=== PATIENT | female | born 1990 | race African-American/Black ===

== ENCOUNTER 2024-09-09 00:43 | Inpatient (IN) ==
[2024-09-09] MEDS: SODIUM CHLORIDE 0.9% 1,000 ML IV STA (01:03)
[2024-09-09] MEDS: ONDANSETRON INJ 2 MG/ML 2 ML VIAL IV STA (01:04)
[2024-09-09] MEDS: KETOROLAC TROMETHAMINE 15 MG/ML VIAL IV STA (01:05)
[2024-09-09] MEDS: DICYCLOMINE HCL 10 MG/ML 2 ML AMP/VIAL IM ONE (01:06)
--- NOTE | 2024-09-09 01:20 | Emergency Department Note ---
History of Present Illness General Chief complaint: Abdominal Pain Stated complaint: ABD PAIN Time Seen by Provider: 09/09/24 00:48 History of Present Illness Maximum Pain Intensity: 10 This 33-year-old female who just moved to the area presents ER with her partner complaining of lower abdominal pain for the past 2 weeks steadily getting worse. No prior abdominal surgeries. She states he is healthy with no active medical problems. Menstrual cycle was 2 weeks ago. Patient denies chest pain, dyspnea, fevers, vomiting, flank pain, urinary symptoms. IUD was placed 7 years ago in [place]. Allergies Allergy/AdvReac Type Severity Reaction Status Date / Time No Known Allergies Allergy Unverified 09/09/24 05:08 Past Med/Surg History Problem List (Updated 09/09/24 @ 06:05 by Daniela Epps PA-C) Vaginal discharge Encounter for IUD removal IUD infection IUD (intrauterine device) in place Abdominal pain (Acute) Inflammation of small intestine Peritonitis (acute) generalized (Acute) History of primary section Hemoperitoneum (nontraumatic) (Acute) Anemia (Acute) Ruptured cyst of left ovary (Acute) Social History Smoking Status: Former smoker Preferred Language: Israeli Feels Safe at Home: Yes Review of Systems A total of 10 systems reviewed and were otherwise negative Physical Exam Vital Signs Vital Signs - 24 hr 09/09/24 00:44 09/09/24 03:39 09/09/24 03:40 Temperature 37.2 C Temperature Source Oral Pulse Rate 100 H 87 90 Respiratory Rate 20 20 Respiratory Effort / Characteristics Non-Labored Respiratory Depth Normal Respiratory Pattern Regular Blood Pressure 122/70 125/76 Blood Pressure Mean 87 92 Pulse Oximetry 99 98 Oxygen Delivery Method Room Air Room Air Sepsis Recent Fever Within 48 Hours No Sepsis New/Unexplained Change in Mental Status N/A Sepsis Action Taken by Nursing No Action Required 09/09/24 04:00 09/09/24 04:03 09/09/24 04:39 Temperature Temperature Source Pulse Rate 90 91 H 93 H Respiratory Rate 20 19 24 Respiratory Effort / Characteristics Respiratory Depth Respiratory Pattern Blood Pressure 99/76 L Blood Pressure Mean 83 Pulse Oximetry 99 100 99 Oxygen Delivery Method Room Air Room Air Room Air Sepsis Recent Fever Within 48 Hours Sepsis New/Unexplained Change in Mental Status Sepsis Action Taken by Nursing 09/09/24 05:07 09/09/24 05:45 Temperature Temperature Source Pulse Rate 97 H Respiratory Rate 22 Respiratory Effort / Characteristics Respiratory Depth Respiratory Pattern Blood Pressure 130/74 Blood Pressure Mean 93 Pulse Oximetry 99 97 Oxygen Delivery Method Room Air Room Air Sepsis Recent Fever Within 48 Hours Sepsis New/Unexplained Change in Mental Status Sepsis Action Taken by Nursing VITALS: Vitals are noted on the nurse's note and reviewed by myself. Vital signs stable. GENERAL: Pleasant female, in no acute distress, nondiaphoretic, well-developed well-nourished. SKIN: Capillary reflex less than 2 seconds. HEENT: Normocephalic. PERRLA. EOMI. Nares patent. Mucous membranes moist. Neck is supple without nuchal rigidity. HEART: Regular rate and rhythm LUNGS: Clear to auscultation bilaterally without wheezes, rales or rhonchi. No retractions or accessory muscle use. ABDOMEN: Positive bowel sounds x 4. Normal tympanic percussion. Soft, tender to palpation lower abdomen, without masses or organomegaly. Streeter sign negative. No guarding or rebound tenderness. no CVA tenderness MUSCULOSKELETAL: No gross musculoskeletal defects. NEURO: Patient was alert and oriented to person place and time. No focal neurological deficits. Course Administered Medications Fentanyl Citrate (Fentanyl Citrate Pf 100 Mcg/2 Ml Vial) 100 mcg IV Q15M PRN PRN Reason: Pain Stop: 09/23/24 03:46 Last Admin: 09/09/24 05:56 Dose: 100 mcg Documented By: Admin: 09/09/24 04:11 Dose: 100 mcg Documented By: NJ Discontinued Medications Dicyclomine HCl (Dicyclomine Hcl 10 Mg/Ml 2 Ml Amp/Vial) 20 mg IM NOW ONE Stop: 09/09/24 00:56 Last Admin: 09/09/24 01:06 Dose: 20 mg Documented By: DOMINICK Doxycycline Hyclate (Doxycycline Hyclate 100 Mg Cap) 100 mg PO NOW STA Stop: 09/09/24 05:47 Last Admin: 09/09/24 05:56 Dose: 100 mg Documented By: NJ Sodium Chloride (Nss) 1,000 mls @ 999 mls/hr IV .Q1H1M STA Stop: 09/09/24 01:55 Last Infusion: 09/09/24 02:00 Dose: Infused Documented By: Admin: 09/09/24 01:03 Dose: 999 mls/hr Documented By: DOMINICK Acetaminophen (Ofirmev) 1,000 mg in 100 mls @ 400 mls/hr IV NOW STA Stop: 09/09/24 02:18 Last Infusion: 09/09/24 02:33 Dose: Infused Documented By: Admin: 09/09/24 02:08 Dose: 400 mls/hr Documented By: DOMINICK Famotidine (Pepcid 20mg Iv Push) 20 mg in 5 mls @ 2.5 mls/min IV NOW STA Stop: 09/09/24 03:48 Last Admin: 09/09/24 04:09 Dose: 2.5 mls/min Documented By: NJ Pantoprazole Sodium (Protonix) 40 mg in 10 mls @ 5 mls/min IV NOW ONE Stop: 09/09/24 03:48 Last Admin: 09/09/24 04:07 Dose: 5 mls/min Documented By: NJ Sodium Chloride (Nss) 1,000 mls @ 999 mls/hr IV .Q1H1M ONE Stop: 09/09/24 04:47 Last Infusion: 09/09/24 05:08 Dose: Infused Documented By: Admin: 09/09/24 04:07 Dose: 999 mls/hr Documented By: NJ Ioversol (Optiray 320 100ml) 94 ml IV ONCE ONE Stop: 09/09/24 01:54 Last Admin: 09/09/24 01:53 Dose: 94 ml Documented By: MARY Ketorolac Tromethamine (Ketorolac Tromethamine 15 Mg/Ml Vial) 10 mg IV NOW STA Stop: 09/09/24 00:56 Last Admin: 09/09/24 01:05 Dose: 10 mg Documented By: DOMINICK Miscellaneous Information (Patient's Allergy Info Needs Entered) 1 each N/A NOW STA Stop: 09/09/24 00:45 Last Admin: 09/09/24 05:23 Dose: 1 each Documented By: NJ Morphine Sulfate (Morphine Sulfate 4 Mg/Ml 1 Ml Carp\Vial) 4 mg IV NOW STA Stop: 09/09/24 02:52 Last Admin: 09/09/24 02:59 Dose: 4 mg Documented By: DOMINICK Morphine Sulfate (Morphine Sulfate 4 Mg/Ml 1 Ml Carp\Vial) Confirm Administered Dose 4 mg .ROUTE .STK-MED ONE Stop: 09/09/24 05:12 Last Admin: 09/09/24 05:21 Dose: Not Given Documented By: NJ Morphine Sulfate (Morphine Sulfate 4 Mg/Ml 1 Ml Carp\Vial) 4 mg IV NOW STA Stop: 09/09/24 05:21 Last Admin: 09/09/24 05:11 Dose: 4 mg Documented By: NJ Ondansetron HCl (Ondansetron Inj 2 Mg/Ml 2 Ml Vial) 4 mg IV NOW STA Stop: 09/09/24 00:56 Last Admin: 09/09/24 01:04 Dose: 4 mg Documented By: DOMINICK Critical Care Time Critical Care Time: Yes Total Critical Care Time: 35 I have personally spent 35 minutes of critical care time in the direct management of this patient. This includes bedside care, interpretation of diagnostic studies, and testing, discussion with consultants, patient, and family members, and other required patient management activities. This 35 minutes is in excess of all separately billable procedures. Medical Decision Making Medical Records Attestation: I reviewed the patient's medical records. Home Medications Current Medication List: was personally reviewed by me Laboratory Data Attestation: I reviewed the patient's lab results. 09/09/24 03:53 09/09/24 01:01 Lab Results 09/09/24 09/09/24 09/09/24 Range/Units 01:01 03:53 05:01 WBC 17.27 H (4.8-10.8) K/ul RBC 4.46 (4.20-5.40) M/uL Hgb 9.4 L 9.2 L (12.0-16.0) g/dl Hct 31.3 L 30.8 L (37.0-47.0) % MCV 70.2 L (80.0-100.0) fL MCH 21.1 L (25.0-34.0) pg MCHC 30.0 L (32.0-36.0) g/dL RDW Std Deviation 44.8 (36.4-46.3) fL RDW Coeff of Tito 17.8 H (11.5-14.5) % Plt Count 873 H (130-400) K/uL MPV 8.6 L (9.4-12.4) fL Immature Gran % (Auto) 0.9 % Neut % (Auto) 66.5 % Lymph % (Auto) 23.5 % [place]val % (Auto) 7.9 % Eos % (Auto) 0.9 % Baso % (Auto) 0.3 % Neut # (Auto) 11.49 H (1.40-6.50) K/uL Lymph # (Auto) 4.05 H (1.20-3.40) K/uL Duval # (Auto) 1.37 H (0.11-0.59) K/uL Eos # (Auto) 0.16 (0.00-0.50) K/uL Baso # (Auto) 0.05 (0.00-0.20) K/uL Immature Gran # (Auto) 0.15 (0.01-0.20) K/uL Sodium 136 (136-145) mmol/L Potassium 3.4 L (3.5-5.1) mmol/L Chloride 104 (98-107) mmol/L Carbon Dioxide 20 L (21-32) mmol/L Anion Gap 12 H (3-11) BUN 12 (6-23) mg/dl Creatinine 0.72 (0.6-1.2) mg/dl Est Cr Clr Drug Dosing 126.4 ml/min eGFR 114.57 BUN/Creatinine Ratio 16.7 (10-20) Glucose 123 H (70-99(Fasting)) mg/dl Calcium 9.6 (8.6-10.3) mg/dl Total Bilirubin 0.3 (0.2-1.0) mg/dl AST 13 (13-39) U/L ALT 12 (7-52) U/L Alkaline Phosphatase 67 (34-104) U/L Total Protein 8.8 H (6.0-8.3) gm/dl Albumin 4.2 (3.4-5.0) gm/dl Globulin 4.6 H (2.5-4.0) gm/dl Albumin/Globulin Ratio 0.9 (0.9-2) Lipase 26 (11-82) U/L HCG, Qual Negative (Negative) Urine Color Yellow Urine Appearance Cloudy A (Clear) Urine pH 6.0 (4.5-7.5) Ur Specific [place] > 1.045 H (1.000-1.030) Urine Protein 1+ H (Negative) Urine Glucose (UA) Negative (Negative) Urine Ketones 1+ H (Negative) Urine Blood Trace H (Negative) Urine Nitrite Negative (Negative) Urine Bilirubin Negative (Negative) Urine Urobilinogen Negative (Negative) Ur Leukocyte Esterase Negative (Negative) Urine WBC (Auto) 21-50 H (0-5) /hpf Urine RBC (Auto) 11-20 H (0-2) /hpf U Hyaline Cast (Auto) 0-2 (0-2) /lpf U Epithel Cells (Auto) 0-2 (0-2) /hpf Urine Bacteria (Auto) None Seen (None Seen) Blood Type O Positive Antibody Screen NEGATIVE Imaging Data Attestation: I personally reviewed and interpreted this imaging study as follows: Radiologist's Impression: Abdomen/Pelvis CT 09/09/24 00:55 EXAM: CT abd pelvis IV con only CLINICAL HISTORY: lower abd pain 94 cc opti 320 TECHNIQUE: Contiguous axial images were obtained from the level of the diaphragm to the pubic symphysis with intravenous contrast. Coronal and sagittal reconstructions were likewise performed and indicated to increase the sensitivity for detecting clinically relevant pathology. If IV contrast material had not been administered, the likelihood of detecting abnormalities relevant to the patient's condition would have been substantially decreased. CT scan was performed according to ALARA (as low as reasonable achievable). COMPARISON: None. FINDINGS: Minimal bilateral pleural effusion with passive subsegmental collapse of both lower lobes are seen. The liver is normal in size and attenuation. No focal liver lesions are seen. There is no intra or extrahepatic biliary ductal dilatation. Hepatic vasculature is patent. The gallbladder is present. The spleen, pancreas, and adrenal glands are unremarkable. The kidneys are normal in size and attenuation. There is no hydronephrosis or perinephric fat stranding. No renal calculi or renal masses are identified. The ureters are normal in caliber and no ureteral calculi are seen. The bladder is normal in contour. No focal or diffuse bowel wall thickening or evidence of bowel obstruction is identified. The appendix is visualized in the right lower quadrant and appears within normal limits. Abdominal and pelvic vasculature is patent. No aggressive appearing osseous lesions are identified. Approximately 57 x 35 mm size peripherally enhancing centrally hypodense cystic lesion is noted involving left adnexa abuts the adjacent left pelvic bowel loops. IUCD appear low lying. Rest of the pelvic viscera are unremarkable. Diffuse enhancing wall thickening is noted involving small bowel loop ( jejunal and ileal loop) - suggestive of enteritis. Mild pelvic ascites with enhancing thickening is noted involving peritoneum lining - suggestive of peritonitis. IMPRESSION: 1. Minimal bilateral pleural effusion with passive subsegmental collapse of both lower lobes are seen. 2. A large peripherally enhancing centrally hypodense cystic lesion is noted involving left adnexa abuts the adjacent left pelvic bowel loops.- possibility of complex ovarian cystic lesion appears more likely than infective collection. 3. Diffuse enhancing wall thickening is noted involving small bowel loop ( jejunal and ileal loop) - suggestive of enteritis. 4. Mild pelvic ascites with enhancing thickening is noted involving peritoneum lining - suggestive of peritonitis. Electronically signed by Jr Lazo 09-09-2024 04:25 AM Pelvis Ultrasound 09/09/24 02:04 EXAM: US pelvic complete CLINICAL HISTORY: Severe pain, IUD. TECHNIQUE: Ultrasound examination of the pelvis was performed in real-time and duplex using trans-abdominal and trans-vaginal approaches. The vascular flow was evaluated using color flow and with a spectral pattern of the flow waveform. COMPARISON: CT scan of the abdomen and pelvis done on the same day 09/09/2024 01:49:52CST. FINDINGS: Uterus: Uterine size and morphology: 8.1 cm in length, 4.0 cm in width, and 3.4 cm in thickness. The uterus appears mildly retroverted with homogeneous myometrium. The intrauterine contraceptive device is seen within the lower part of the endometrial cavity. Its left limb is pointing towards the left side however its right limb is pointing anteriorly and appears to be perforating the anterior uterine wall. No evidence of uterine masses, fibroids, or endometrial thickening. Endometrial stripe thickness: 4.9 mm. Ovaries: Right ovary size: 2.46 x 2.17 cm. Left ovary: The left ovary is not separately visualized. Adnexa: A large, heterogeneous, complex mass solid/cystic mass is seen in the left adnexa. It measures 5.27 x 4.54 cm. Bladder: Urinary bladder: is adequately filled. Additional Findings: A large amount of free fluid is seen in the pelvic cavity, along with a large number of low-level, free-floating internal echoes. IMPRESSION: 1. Keeping in view the radiological findings of a complex mass in the left adnexa and complex ascitic fluid, the possibility of a tubo-ovarian mass/ruptured ectopic /inflamed thick-walled bowel loops cannot be ruled out. Further evaluation by contrast-enhanced MRI is advised. 2. Questionable /doubtful perforation of the anterior uterine wall by the right limb of the intrauterine contraceptive device. 3. Correlate clinically and with lab investigations. Electronically signed by Shay Garcia 09-09-2024 05:05 AM MDM Narrative Prior records/ancillary studies reviewed. Triage Nursing notes reviewed. Additional history obtained from family. The patient's history was concerning for abdominal pain. Differential diagnosis: Etiologies such as appendicitis, ovarian problem, problem, IUD problem, diverticulitis, PUD, biliary pathology, UTI, pancreatitis, obstruction, mesenteric ischemia, aortic pathology, infections, inflammatory bowel disease, renal colic, as well as others were entertained. Physical examination findings: As above. ER treatment provided: An order was placed for continuous cardiac monitoring. The monitor shows a rate of 60-100 with a sinus rhythm per my Independent interpretation. Zofran, Bentyl and Toradol were ordered Morphine, fentanyl, IV fluids and second IV line was placed Patient was consented to blood and type and screen was sent On reassessment the patient felt better. Diagnostics interpreted by me: The labs Independently Interpreted by myself revealed anemia patient states she has heavy menstrual cycles Negative hCG Imaging studies: There were significant delays in the CAT scan and ultrasound reads tonight I independently reviewed the CAT scan and ultrasound and I was concerned there is a hemorrhagic cyst on the left ovary that was bleeding. I contacted OB immediately repeated the H&H and consented the patient to blood if warranted. Consultation: A consultation was placed with the OB, Dr. Whitfield. The case was discussed and diagnostics were reviewed. The patient was evaluated in the ER for further treatment. She will admit the patient and she did remove the IUD. Exam and history seem consistent with ruptured hemorrhagic cyst. Patient was evaluated by OB. OB will admit the patient. She did remove the IUD. Patient was admitted to the [facility]. Repeat H&H was similar. Type and screen was sent. Patient is agreeable to treatment plan of admission. By the evaluation outlined above emergent etiologies such as appendicitis, diverticulitis, PUD, biliary pathology, UTI, pancreatitis, obstruction, mesenteric ischemia, aortic pathology, inflammatory bowel disease, renal colic, as well as others were deemed relatively unlikely. The pt informed about the findings as listed above. All questions were answered and pleased with the treatment. The chart was completed utilizing Dragon Speech voice recognition software. Grammatical errors, random word insertions, pronoun errors, and incomplete sentences are an occassional consequence of this system due to software limitations, ambient noise, and hardware issues. Any formal questions or concerns about the content, text, or information contained within the body of this dictation should be directly addressed to the physician student assistant for clarification. Impression & Plan Ruptured cyst of left ovary, Anemia, Hemoperitoneum (nontraumatic), Peritonitis (acute) generalized, Abdominal pain Discharge Plan Visit Data Chief Complaint: Abdominal Pain Stated Complaint: ABD PAIN ED Provider: Terrie Dennis ED Midlevel Provider: Daniela Epps Discharge Problem: Ruptured cyst of left ovary, Anemia, Hemoperitoneum (nontraumatic), Peritonitis (acute) generalized, Abdominal pain Patient Disposition: Admitted As Inpatient Condition: Good Forms Stand Alone Forms: [facility] Referrals Referrals: PCP,NO [Primary Care Provider] - Discharge Problem: Anemia Qualifiers: Anemia type: unspecified type Qualified Code(s): D64.9 - Anemia, unspecified
[2024-09-09 01:28] LABS: Basophils # (auto) 0.05 K/uL (0.00-0.20); Basophils % (auto) 0.3 %; Eosinophils # (auto) 0.16 K/uL (0.00-0.50); Eosinophils % (auto) 0.9 %; Hematocrit (blood only) 31.3 % (37.0-47.0); Hemoglobin 9.4 g/dl (12.0-16.0); Immature Granulocytes # (auto) 0.15 K/uL (0.01-0.20); Immature Granulocytes % (auto) 0.9 %; Lymphocytes # (auto) 4.05 K/uL (1.20-3.40); Lymphocytes % (auto) 23.5 %; Mean Corpuscular Hemoglobin 21.1 pg (25.0-34.0); Mean Corpuscular Volume 70.2 fL (80.0-100.0); Mean Platelet Volume 8.6 fL (9.4-12.4); Monocytes # (auto) 1.37 K/uL (0.11-0.59); Monocytes % (auto) 7.9 %; Neutrophils # (auto) 11.49 K/uL (1.40-6.50); Neutrophils % (auto) 66.5 %; Platelet Count 873 K/uL (130-400); RDW Coefficient of Variation 17.8 % (11.5-14.5); RDW Standard Deviation 44.8 fL (36.4-46.3); Red Blood Count 4.46 M/uL (4.20-5.40); White Blood Count 17.27 K/ul (4.8-10.8)
[2024-09-09 01:38] LABS: Pregnancy Test, Serum Negative (Negative)
[2024-09-09 01:41] LABS: Albumin Globulin Ratio 0.9 (0.9-2); Albumin Level 4.2 gm/dl (3.4-5.0); BUN Creatinine Ratio 16.7 (10-20); Bilirubin,Total 0.3 mg/dl (0.2-1.0); Calcium 9.6 mg/dl (8.6-10.3); Creatinine Clr Calc Pharmacy 126.4 ml/min; Globulin 4.6 gm/dl (2.5-4.0); Potassium 3.4 mmol/L (3.5-5.1); Total Protein 8.8 gm/dl (6.0-8.3)
[2024-09-09] MEDS: OPTIRAY 320 100ml IV ONE (01:53)
[2024-09-09] MEDS: ACETAMINOPHEN 1,000 MG/100 ML VIAL IV STA (02:08)
[2024-09-09] MEDS: MoRPHine SULFATE 4 MG/ML 1 ML CARP\\VIAL IV STA ×3 (02:59→16:12)
[2024-09-09] MEDS: SODIUM CHLORIDE 0.9% 1,000 ML IV ONE (04:07)
[2024-09-09] MEDS: PANTOprazole 40 MG/10 ML SYR IV ONE (04:07)
[2024-09-09] MEDS: FAMOTIDINE 20MG IV PUSH 20 MG/5 ML SYR IV STA (04:09)
[2024-09-09] MEDS: fentaNYL citrate PF 100 MCG/2 ML VIAL IV PRN (04:11)
[2024-09-09 04:20] LABS: Hematocrit (blood only) 30.8 % (37.0-47.0); Hemoglobin 9.2 g/dl (12.0-16.0)
--- NOTE | 2024-09-09 04:25 | CT Scan Report ---
EXAM: CT abd pelvis IV con only CLINICAL HISTORY: lower abd pain 94 cc opti 320 TECHNIQUE: Contiguous axial images were obtained from the level of the diaphragm to the pubic symphysis with intravenous contrast. Coronal and sagittal reconstructions were likewise performed and indicated to increase the sensitivity for detecting clinically relevant pathology. If IV contrast material had not been administered, the likelihood of detecting abnormalities relevant to the patient's condition would have been substantially decreased. CT scan was performed according to ALARA (as low as reasonable achievable). COMPARISON: None. FINDINGS: Minimal bilateral pleural effusion with passive subsegmental collapse of both lower lobes are seen. The liver is normal in size and attenuation. No focal liver lesions are seen. There is no intra or extrahepatic biliary ductal dilatation. Hepatic vasculature is patent. The gallbladder is present. The spleen, pancreas, and adrenal glands are unremarkable. The kidneys are normal in size and attenuation. There is no hydronephrosis or perinephric fat stranding. No renal calculi or renal masses are identified. The ureters are normal in caliber and no ureteral calculi are seen. The bladder is normal in contour. No focal or diffuse bowel wall thickening or evidence of bowel obstruction is identified. The appendix is visualized in the right lower quadrant and appears within normal limits. Abdominal and pelvic vasculature is patent. No aggressive appearing osseous lesions are identified. Approximately 57 x 35 mm size peripherally enhancing centrally hypodense cystic lesion is noted involving left adnexa abuts the adjacent left pelvic bowel loops. IUCD appear low lying. Rest of the pelvic viscera are unremarkable. Diffuse enhancing wall thickening is noted involving small bowel loop ( jejunal and ileal loop) - suggestive of enteritis. Mild pelvic ascites with enhancing thickening is noted involving peritoneum lining - suggestive of peritonitis. IMPRESSION: 1. Minimal bilateral pleural effusion with passive subsegmental collapse of both lower lobes are seen. 2. A large peripherally enhancing centrally hypodense cystic lesion is noted involving left adnexa abuts the adjacent left pelvic bowel loops.- possibility of complex ovarian cystic lesion appears more likely than infective collection. 3. Diffuse enhancing wall thickening is noted involving small bowel loop ( jejunal and ileal loop) - suggestive of enteritis. 4. Mild pelvic ascites with enhancing thickening is noted involving peritoneum lining - suggestive of peritonitis. Electronically signed by Jr Lazo 09-09-2024 04:25 AM
[2024-09-09] MEDS ORDERED: GENTAMICIN CONSULT ACTIVE PRN (05:00)
[2024-09-09] MEDS ORDERED: ALUMINUM/MAGNESIUM/SIMETH (MAALOX MAX) 30 ML UDC PO PRN (05:00)
[2024-09-09] MEDS ORDERED: MAGNESIUM HYDROXIDE SUSP 30 ML UDC PO PRN (05:00)
--- NOTE | 2024-09-09 05:05 | Ultrasound Report ---
EXAM: US pelvic complete CLINICAL HISTORY: Severe pain, IUD. TECHNIQUE: Ultrasound examination of the pelvis was performed in real-time and duplex using trans-abdominal and trans-vaginal approaches. The vascular flow was evaluated using color flow and with a spectral pattern of the flow waveform. COMPARISON: CT scan of the abdomen and pelvis done on the same day 09/09/2024 01:49:52CST. FINDINGS: Uterus: Uterine size and morphology: 8.1 cm in length, 4.0 cm in width, and 3.4 cm in thickness. The uterus appears mildly retroverted with homogeneous myometrium. The intrauterine contraceptive device is seen within the lower part of the endometrial cavity. Its left limb is pointing towards the left side however its right limb is pointing anteriorly and appears to be perforating the anterior uterine wall. No evidence of uterine masses, fibroids, or endometrial thickening. Endometrial stripe thickness: 4.9 mm. Ovaries: Right ovary size: 2.46 x 2.17 cm. Left ovary: The left ovary is not separately visualized. Adnexa: A large, heterogeneous, complex mass solid/cystic mass is seen in the left adnexa. It measures 5.27 x 4.54 cm. Bladder: Urinary bladder: is adequately filled. Additional Findings: A large amount of free fluid is seen in the pelvic cavity, along with a large number of low-level, free-floating internal echoes. IMPRESSION: 1. Keeping in view the radiological findings of a complex mass in the left adnexa and complex ascitic fluid, the possibility of a tubo-ovarian mass/ruptured ectopic /inflamed thick-walled bowel loops cannot be ruled out. Further evaluation by contrast-enhanced MRI is advised. 2. Questionable /doubtful perforation of the anterior uterine wall by the right limb of the intrauterine contraceptive device. 3. Correlate clinically and with lab investigations. Electronically signed by Shay Garcia 09-09-2024 05:05 AM
[2024-09-09] MEDS: MoRPHine SULFATE 4 MG/ML 1 ML CARP\\VIAL ONE (05:21)
[2024-09-09] MEDS: Patient's ALLERGY Info needs ENTERED STA (05:23)
--- NOTE | 2024-09-09 05:23 | OB/GYN Consultation ---
Date of Consultation September 09, 2024 Assessment & Plan (1) History of primary section: (2) Hemoperitoneum (nontraumatic): (3) Anemia: (4) Ruptured cyst of left ovary: (5) Peritonitis (acute) generalized: (6) Inflammation of small intestine: (7) Abdominal pain: Patient is a 33 yo with Paragard IUD for 7 years, presenting today with generalized abdominal pain for 2 weeks, low IUD, ovarian cyst, fluid in pelvis, inflammation/ infection vs ruptured ovarian cyst, small bowel inflammation, peritonitis, elevated WBCC VSS Afebrile in severe pain Abundant yellow to green d/c in vagina, cervix, cultures collected IUD removed per her request, sent for culture cultures collected Plan to admit, pain management, IV AB's, repeat labs, G. surgery consultation ID consult if no response to current IV regime Patient understands all and agrees with plan (8) IUD (intrauterine device) in place: (9) IUD infection: (10) Encounter for IUD removal: (11) Vaginal discharge: History of Present Illness History of Present Illness Patient is a 33 yo female who is presenting this morning for abdominal pain which started about 2 weeks ago. It has been diffuse, more on LLQ but came up to her upper abdomen this morning. She was taking pain meds and was thinking of trapped gas for the last 2 weeks. She woke up with pain around [place] and came to ER. Pain level has been between 5-8 Moving makes it worse. She has been eating normally. She states he is healthy with no active medical problems. Menstrual cycle was 2 weeks ago. Patient denies chest pain, dyspnea, fevers, vomiting, flank pain, urinary symptoms. She normally gets constipated, small amount of stools daily. No h/o STD's ( chlamydia/ GC/ HSV) No h/o abnormal pap smear Has been with same partner for 3 years Periods regular every 4 weeks, lasting for 7 days, with heavy flow Uses Ibuprofen for period cramps Has had Paragard IUD for 7 years No pain with SI, has not been sexually active for 2 weeks. Allergies Allergy/AdvReac Type Severity Reaction Status Date / Time No Known Allergies Allergy Unverified 09/09/24 05:08 Patient History Social History Smoking Status: Former smoker Preferred Language: Pashto Feels Safe at Home: Yes Review of Systems Constitutional: as per Subjective / HPI, + fever, + chills and + fatigue Physical Exam Constitutional: WD/WN, vitals as above well developed, well nourished and + acute distress (CRYING WITH PAIN) Gastrointestinal (Abdomen): Inspection/Auscultation: abdomen normal to inspection Percussion/Palpation: + abdomen tender and + guarding Genitourinary: normal external appearance Speculum/Bimanual Exam: + IUD string visulaized, + abnormal cervical discharge, + adnexal tenderness (right), + abnormal vaginal discharge (yellow to greenish), normal vaginal palpation, + cervical motion tenderness (+) and + uterus tender IUD strings were visible, long about 5 cm, has extr wire on the tip?, hel with ring forceps and removed without difficulty Sent for culture Results & Data Vital Signs (Past 12 Hours) Vital Signs Temp Pulse Resp BP Pulse Ox O2 Del Method 09/09/24 05:07 99 Room Air 09/09/24 04:39 93 H 24 99 Room Air 09/09/24 04:03 91 H 19 99/76 L 100 Room Air 09/09/24 04:00 90 20 99 Room Air 09/09/24 03:40 90 09/09/24 03:39 87 20 125/76 98 Room Air 09/09/24 00:44 37.2 C 100 H 20 122/70 99 Room Air Laboratory Results Lab Results 09/09/24 09/09/24 Range/Units 01:01 03:53 WBC 17.27 H (4.8-10.8) K/ul RBC 4.46 (4.20-5.40) M/uL Hgb 9.4 L 9.2 L (12.0-16.0) g/dl Hct 31.3 L 30.8 L (37.0-47.0) % MCV 70.2 L (80.0-100.0) fL MCH 21.1 L (25.0-34.0) pg MCHC 30.0 L (32.0-36.0) g/dL RDW Std Deviation 44.8 (36.4-46.3) fL RDW Coeff of Tito 17.8 H (11.5-14.5) % Plt Count 873 H (130-400) K/uL MPV 8.6 L (9.4-12.4) fL Immature Gran % (Auto) 0.9 % Neut % (Auto) 66.5 % Lymph % (Auto) 23.5 % [place] % (Auto) 7.9 % Eos % (Auto) 0.9 % Baso % (Auto) 0.3 % Neut # (Auto) 11.49 H (1.40-6.50) K/uL Lymph # (Auto) 4.05 H (1.20-3.40) K/uL [place] # (Auto) 1.37 H (0.11-0.59) K/uL Eos # (Auto) 0.16 (0.00-0.50) K/uL Baso # (Auto) 0.05 (0.00-0.20) K/uL Immature Gran # (Auto) 0.15 (0.01-0.20) K/uL Sodium 136 (136-145) mmol/L Potassium 3.4 L (3.5-5.1) mmol/L Chloride 104 (98-107) mmol/L Carbon Dioxide 20 L (21-32) mmol/L Anion Gap 12 H (3-11) BUN 12 (6-23) mg/dl Creatinine 0.72 (0.6-1.2) mg/dl Est Cr Clr Drug Dosing 126.4 ml/min eGFR 114.57 BUN/Creatinine Ratio 16.7 (10-20) Glucose 123 H (70-99(Fasting)) mg/dl Calcium 9.6 (8.6-10.3) mg/dl Total Bilirubin 0.3 (0.2-1.0) mg/dl AST 13 (13-39) U/L ALT 12 (7-52) U/L Alkaline Phosphatase 67 (34-104) U/L Total Protein 8.8 H (6.0-8.3) gm/dl Albumin 4.2 (3.4-5.0) gm/dl Globulin 4.6 H (2.5-4.0) gm/dl Albumin/Globulin Ratio 0.9 (0.9-2) Lipase 26 (11-82) U/L HCG, Qual Negative (Negative) Blood Type O Positive Antibody Screen NEGATIVE Diagnostic Findings CT abdomen/ pelvic : FINDINGS: Minimal bilateral pleural effusion with passive subsegmental collapse of both lower lobes are seen. The liver is normal in size and attenuation. No focal liver lesions are seen. There is no intra or extrahepatic biliary ductal dilatation. Hepatic vasculature is patent. The gallbladder is present. The spleen, pancreas, and adrenal glands are unremarkable. The kidneys are normal in size and attenuation. There is no hydronephrosis or perinephric fat stranding. No renal calculi or renal masses are identified. The ureters are normal in caliber and no ureteral calculi are seen. The bladder is normal in contour. No focal or diffuse bowel wall thickening or evidence of bowel obstruction is identified. The appendix is visualized in the right lower quadrant and appears within normal limits. Abdominal and pelvic vasculature is patent. No aggressive appearing osseous lesions are identified. Approximately 57 x 35 mm size peripherally enhancing centrally hypodense cystic lesion is noted involving left adnexa abuts the adjacent left pelvic bowel loops. IUCD appear low lying. Rest of the pelvic viscera are unremarkable. Diffuse enhancing wall thickening is noted involving small bowel loop ( jejunal and ileal loop) - suggestive of enteritis. Mild pelvic ascites with enhancing thickening is noted involving peritoneum lining - suggestive of peritonitis. IMPRESSION: 1. Minimal bilateral pleural effusion with passive subsegmental collapse of both lower lobes are seen. 2. A large peripherally enhancing centrally hypodense cystic lesion is noted involving left adnexa abuts the adjacent left pelvic bowel loops.- possibility of complex ovarian cystic lesion appears more likely than infective collection. 3. Diffuse enhancing wall thickening is noted involving small bowel loop ( jejunal and ileal loop) - suggestive of enteritis. 4. Mild pelvic ascites with enhancing thickening is noted involving peritoneum lining - suggestive of peritonitis. PELVIC US: IMPRESSION: 1. Keeping in view the radiological findings of a complex mass in the left adnexa and complex ascitic fluid, the possibility of a tubo-ovarian mass/ruptured ectopic /inflamed thick-walled bowel loops cannot be ruled out. Further evaluation by contrast-enhanced MRI is advised. 2. Questionable /doubtful perforation of the anterior uterine wall by the right limb of the intrauterine contraceptive device. 3. Correlate clinically and with lab investigations. (3) Anemia Anemia type: unspecified type Qualified Code(s): D64.9 - Anemia, unspecified (7) Abdominal pain Abdominal location: generalized Qualified Code(s): R10.84 - Generalized abdominal pain
[2024-09-09 05:44] LABS: Appearance Urine Cloudy (Clear); Bacteria Urine Automated None Seen (None Seen); Bilirubin Urine Negative (Negative); Blood Urine Trace (Negative); Cast Urine Automated 0-2 /lpf (0-2); Color Urine Yellow; Epithelial Cell Urine Auto 0-2 /hpf (0-2); Glucose Urine UA Negative (Negative); Ketones Urine 1+ (Negative); Leukocyte Esterase Urine Negative (Negative); Nitrite Urine Negative (Negative); Protein Urine 1+ (Negative); Specific Gravity Urine > 1.045 (1.000-1.030); Urobilinogen Urine Negative (Negative); WBC Urine Automated 21-50 /hpf (0-5)
[2024-09-09] MEDS: DOXYCYCLINE HYCLATE 100 MG CAP PO STA (05:56)
[2024-09-09] MEDS ORDERED: GENTAMICIN SULFATE 120 MG in DEXTROSE 5% 100 ML IV SCH (06:00)
[2024-09-09] MEDS ORDERED: AMPICILLIN SOD 1 GM VIAL IV SCH (06:00)
[2024-09-09] MEDS: AMPICILLIN 2,000 MG in SODIUM CHLOR 0.9% MINI-B 100 ML IV SCH (07:00)
[2024-09-09] MEDS: KETOROLAC TROMETHAMINE 15 MG/ML VIAL IV PRN (07:06)
[2024-09-09] MEDS: GENTAMICIN SULFATE 500 MG in DEXTROSE 5% 100 ML IV ONE (07:33)
[2024-09-09] MEDS: MoRPHine SULFATE 4 MG/ML 1 ML CARP\\VIAL IV PRN (08:13)
[2024-09-09 09:13] LABS: Hematocrit (blood only) 29.6 % (37.0-47.0); Hemoglobin 8.9 g/dl (12.0-16.0); Mean Corpuscular Hgb Conc 30.1 g/dL (32.0-36.0); Mean Platelet Volume 8.7 fL (9.4-12.4); Platelet Count 752 K/uL (130-400); RDW Coefficient of Variation 18.1 % (11.5-14.5); RDW Standard Deviation 45.5 fL (36.4-46.3); Red Blood Count 4.23 M/uL (4.20-5.40); White Blood Count 18.08 K/ul (4.8-10.8)
[2024-09-09 09:32] LABS: Basophils # (auto) 0.02 K/uL (0.00-0.20); Basophils % (auto) 0.1 %; Hypochromasia Present; Immature Granulocytes # (auto) 0.07 K/uL (0.01-0.20); Immature Granulocytes % (auto) 0.4 %; Lymphocytes # (auto) 0.89 K/uL (1.20-3.40); Lymphocytes % (auto) 4.9 %; Microcytosis Present; Monocytes # (auto) 0.52 K/uL (0.11-0.59); Monocytes % (auto) 2.9 %; Neutrophils # (auto) 16.58 K/uL (1.40-6.50); Neutrophils % (auto) 91.7 %; Polychromasia 1+
[2024-09-09] MEDS: ACETAMINOPHEN 1,000 MG/100 ML VIAL IV PRN (10:22)
--- NOTE | 2024-09-09 11:08 | Obstetrical Progress Note ---
Date of Service September 09, 2024 Assessment & Plan Admission and Anticipated Discharge Date Admission Date: September 09, 2024 Subjective abdomen tender no calf tenderness afebrile on gentamycin ampicillin po doxycycline iud removed Results & Data Vital Signs (Past 12 Hours) Vital Signs Temp Pulse Resp BP Pulse Ox O2 Del Method 09/09/24 08:00 86 24 133/84 98 09/09/24 07:00 91 H 20 142/87 H 97 09/09/24 06:00 92 H 16 136/88 97 Room Air 09/09/24 05:45 97 H 22 130/74 97 Room Air 09/09/24 05:07 99 Room Air 09/09/24 04:39 93 H 24 99 Room Air 09/09/24 04:03 91 H 19 99/76 L 100 Room Air 09/09/24 04:00 90 20 99 Room Air 09/09/24 03:40 90 09/09/24 03:39 87 20 125/76 98 Room Air 09/09/24 00:44 37.2 C 100 H 20 122/70 99 Room Air
--- NOTE | 2024-09-09 12:04 | Surgery Consultation ---
Date of Consultation September 09, 2024 Assessment & Plan (1) Ruptured cyst of left ovary: (2) Tubo-ovarian abscess: (3) Abdominal pain: Plan 33-year-old woman presents with apparent tubo-ovarian abscess. This appears to be entirely gynecological in nature. No free air or evidence of perforated bowel. She is on antibiotics. We will continue the antibiotics and conservative management for now. I will continue to follow along. Primary management per gynecological team. History of Present Illness Reason for Consultation: abdominal infection Requesting Physician: Martin Martin MD Attending Physician: Martin Martin MD History of Present Illness 33-year-old woman presents with severe pain in her lower abdomen. She has been having pain for the last 2 weeks which is progressively been worsening. She denies nausea or vomiting. She had a bowel movement yesterday. No fevers or chills. Allergies Allergy/AdvReac Type Severity Reaction Status Date / Time No Known Allergies Allergy Unverified 09/09/24 05:08 Patient History Social History Smoking Status: Former smoker Preferred Language: Azeri Feels Safe at Home: Yes Review of Systems Review of Systems: All systems reviewed & are unremarkable except as noted in HPI & below Physical Exam Constitutional: WD/WN, vitals as above Eyes: PERRL, conjunctivae normal, anicteric sclerae Neck: trachea midline, no thyromegaly Respiratory: normal respiratory effort; no respiratory distress and no labored breathing Cardiovascular: Rate/Rhythm: regular rate and regular rhythm Gastrointestinal (Abdomen): Inspection/Auscultation: abdomen normal to in spection; abdomen not distended Percussion/Palpation: + abdomen tender ( Diffusely) and abdomen soft; no guarding and abdomen not rigid Skin: no rashes, warm and dry Psychiatric: A+Ox3, euthymic affect Results & Data Vital Signs (Past 12 Hours) Vital Signs Temp Pulse Pulse Resp BP BP Pulse Ox 09/09/24 11:08 37.4 C 94 H 20 158/87 H 96 09/09/24 08:00 86 24 133/84 98 09/09/24 07:00 91 H 20 142/87 H 97 09/09/24 06:00 92 H 16 136/88 97 09/09/24 05:45 97 H 22 130/74 97 09/09/24 05:07 99 09/09/24 04:39 93 H 24 99 09/09/24 04:03 91 H 19 99/76 L 100 09/09/24 04:00 90 20 99 09/09/24 03:40 90 09/09/24 03:39 87 20 125/76 98 09/09/24 00:44 37.2 C 100 H 20 122/70 99 O2 Del Method 09/09/24 11:08 Room Air 09/09/24 08:00 09/09/24 07:00 09/09/24 06:00 Room Air 09/09/24 05:45 Room Air 09/09/24 05:07 Room Air 09/09/24 04:39 Room Air 09/09/24 04:03 Room Air 09/09/24 04:00 Room Air 09/09/24 03:40 09/09/24 03:39 Room Air 09/09/24 00:44 Room Air Laboratory Results 09/09/24 09/09/24 09/09/24 Range/Units 08:53 05:30 05:01 WBC 18.08 H (4.8-10.8) K/ul RBC 4.23 (4.20-5.40) M/uL Hgb 8.9 L (12.0-16.0) g/dl Hct 29.6 L (37.0-47.0) % MCV 70.0 L (80.0-100.0) fL MCH 21.0 L (25.0-34.0) pg MCHC 30.1 L (32.0-36.0) g/dL RDW Std Deviation 45.5 (36.4-46.3) fL RDW Coeff of Tito 18.1 H (11.5-14.5) % Plt Count 752 H (130-400) K/uL MPV 8.7 L (9.4-12.4) fL Immature Gran % (Auto) 0.4 % Neut % (Auto) 91.7 % Lymph % (Auto) 4.9 % [place] % (Auto) 2.9 % Eos % (Auto) 0.0 % Baso % (Auto) 0.1 % Neut # (Auto) 16.58 H (1.40-6.50) K/uL Lymph # (Auto) 0.89 L (1.20-3.40) K/uL [place] # (Auto) 0.52 (0.11-0.59) K/uL Eos # (Auto) 0.00 (0.00-0.50) K/uL Baso # (Auto) 0.02 (0.00-0.20) K/uL Immature Gran # (Auto) 0.07 (0.01-0.20) K/uL Polychromasia 1+ Hypochromasia Present Microcytosis Present Sodium (136-145) mmol/L Potassium (3.5-5.1) mmol/L Chloride (98-107) mmol/L Carbon Dioxide (21-32) mmol/L Anion Gap (3-11) BUN (6-23) mg/dl Creatinine (0.6-1.2) mg/dl Est Cr Clr Drug Dosing ml/min eGFR BUN/Creatinine Ratio (10-20) Glucose (70-99(Fasting)) mg/dl Calcium (8.6-10.3) mg/dl Total Bilirubin (0.2-1.0) mg/dl AST (13-39) U/L ALT (7-52) U/L Alkaline Phosphatase (34-104) U/L Total Protein (6.0-8.3) gm/dl Albumin (3.4-5.0) gm/dl Globulin (2.5-4.0) gm/dl Albumin/Globulin Ratio (0.9-2) Lipase (11-82) U/L HCG, Qual (Negative) Urine Color Yellow Urine Appearance Cloudy A (Clear) Urine pH 6.0 (4.5-7.5) Ur Specific [place] > 1.045 H (1.000-1.030) Urine Protein 1+ H (Negative) Urine Glucose (UA) Negative (Negative) Urine Ketones 1+ H (Negative) Urine Blood Trace H (Negative) Urine Nitrite Negative (Negative) Urine Bilirubin Negative (Negative) Urine Urobilinogen Negative (Negative) Ur Leukocyte Esterase Negative (Negative) Urine WBC (Auto) 21-50 H (0-5) /hpf Urine RBC (Auto) 11-20 H (0-2) /hpf U Hyaline Cast (Auto) 0-2 (0-2) /lpf U Epithel Cells (Auto) 0-2 (0-2) /hpf Urine Bacteria (Auto) None Seen (None Seen) C.trachomatis RNA Pending N.gonorrhoeae RNA Pending T.vaginalis (Amp Det) Pending Blood Type Antibody Screen 09/09/24 09/09/24 Range/Units 03:53 01:01 WBC 17.27 H (4.8-10.8) K/ul RBC 4.46 (4.20-5.40) M/uL Hgb 9.2 L 9.4 L (12.0-16.0) g/dl Hct 30.8 L 31.3 L (37.0-47.0) % MCV 70.2 L (80.0-100.0) fL MCH 21.1 L (25.0-34.0) pg MCHC 30.0 L (32.0-36.0) g/dL RDW Std Deviation 44.8 (36.4-46.3) fL RDW Coeff of Tito 17.8 H (11.5-14.5) % Plt Count 873 H (130-400) K/uL MPV 8.6 L (9.4-12.4) fL Immature Gran % (Auto) 0.9 % Neut % (Auto) 66.5 % Lymph % (Auto) 23.5 % [place] % (Auto) 7.9 % Eos % (Auto) 0.9 % Baso % (Auto) 0.3 % Neut # (Auto) 11.49 H (1.40-6.50) K/uL Lymph # (Auto) 4.05 H (1.20-3.40) K/uL [place] # (Auto) 1.37 H (0.11-0.59) K/uL Eos # (Auto) 0.16 (0.00-0.50) K/uL Baso # (Auto) 0.05 (0.00-0.20) K/uL Immature Gran # (Auto) 0.15 (0.01-0.20) K/uL Polychromasia Hypochromasia Microcytosis Sodium 136 (136-145) mmol/L Potassium 3.4 L (3.5-5.1) mmol/L Chloride 104 (98-107) mmol/L Carbon Dioxide 20 L (21-32) mmol/L Anion Gap 12 H (3-11) BUN 12 (6-23) mg/dl Creatinine 0.72 (0.6-1.2) mg/dl Est Cr Clr Drug Dosing 126.4 ml/min eGFR 114.57 BUN/Creatinine Ratio 16.7 (10-20) Glucose 123 H (70-99(Fasting)) mg/dl Calcium 9.6 (8.6-10.3) mg/dl Total Bilirubin 0.3 (0.2-1.0) mg/dl AST 13 (13-39) U/L ALT 12 (7-52) U/L Alkaline Phosphatase 67 (34-104) U/L Total Protein 8.8 H (6.0-8.3) gm/dl Albumin 4.2 (3.4-5.0) gm/dl Globulin 4.6 H (2.5-4.0) gm/dl Albumin/Globulin Ratio 0.9 (0.9-2) Lipase 26 (11-82) U/L HCG, Qual Negative (Negative) Urine Color Urine Appearance (Clear) Urine pH (4.5-7.5) Ur Specific [place] (1.000-1.030) Urine Protein (Negative) Urine Glucose (UA) (Negative) Urine Ketones (Negative) Urine Blood (Negative) Urine Nitrite (Negative) Urine Bilirubin (Negative) Urine Urobilinogen (Negative) Ur Leukocyte Esterase (Negative) Urine WBC (Auto) (0-5) /hpf Urine RBC (Auto) (0-2) /hpf U Hyaline Cast (Auto) (0-2) /lpf U Epithel Cells (Auto) (0-2) /hpf Urine Bacteria (Auto) (None Seen) C.trachomatis RNA N.gonorrhoeae RNA T.vaginalis (Amp Det) Blood Type O Positive Antibody Screen NEGATIVE Diagnostic Findings EXAM: US pelvic complete CLINICAL HISTORY: Severe pain, IUD. TECHNIQUE: Ultrasound examination of the pelvis was performed in real-time and duplex using trans-abdominal and trans-vaginal approaches. The vascular flow was evaluated using color flow and with a spectral pattern of the flow waveform. COMPARISON: CT scan of the abdomen and pelvis done on the same day 09/09/2024 01:49:52CST. FINDINGS: Uterus: Uterine size and morphology: 8.1 cm in length, 4.0 cm in width, and 3.4 cm in thickness. The uterus appears mildly retroverted with homogeneous myometrium. The intrauterine contraceptive device is seen within the lower part of the endometrial cavity. Its left limb is pointing towards the left side however its right limb is pointing anteriorly and appears to be perforating the anterior uterine wall. No evidence of uterine masses, fibroids, or endometrial thickening. Endometrial stripe thickness: 4.9 mm. Ovaries: Right ovary size: 2.46 x 2.17 cm. Left ovary: The left ovary is not separately visualized. Adnexa: A large, heterogeneous, complex mass solid/cystic mass is seen in the left adnexa. It measures 5.27 x 4.54 cm. Bladder: Urinary bladder: is adequately filled. Additional Findings: A large amount of free fluid is seen in the pelvic cavity, along with a large number of low-level, free-floating internal echoes. IMPRESSION: 1. Keeping in view the radiological findings of a complex mass in the left adnexa and complex ascitic fluid, the possibility of a tubo-ovarian mass/ruptured ectopic /inflamed thick-walled bowel loops cannot be ruled out. Further evaluation by contrast-enhanced MRI is advised. 2. Questionable /doubtful perforation of the anterior uterine wall by the right limb of the intrauterine contraceptive device. 3. Correlate clinically and with lab investigations. Electronically signed by Shay Garcia 09-09-2024 05:05 AM Dictated: 09/09/24 [id number] Transcribed: XAM: CT abd pelvis IV con only CLINICAL HISTORY: lower abd pain 94 cc opti 320 TECHNIQUE: Contiguous axial images were obtained from the level of the diaphragm to the pubic symphysis with intravenous contrast. Coronal and sagittal reconstructions were likewise performed and indicated to increase the sensitivity for detecting clinically relevant pathology. If IV contrast material had not been administered, the likelihood of detecting abnormalities relevant to the patient's condition would have been substantially decreased. CT scan was performed according to ALARA (as low as reasonable achievable). COMPARISON: None. FINDINGS: Minimal bilateral pleural effusion with passive subsegmental collapse of both lower lobes are seen. The liver is normal in size and attenuation. No focal liver lesions are seen. There is no intra or extrahepatic biliary ductal dilatation. Hepatic vasculature is patent. The gallbladder is present. The spleen, pancreas, and adrenal glands are unremarkable. The kidneys are normal in size and attenuation. There is no hydronephrosis or perinephric fat stranding. No renal calculi or renal masses are identified. The ureters are normal in caliber and no ureteral calculi are seen. The bladder is normal in contour. No focal or diffuse bowel wall thickening or evidence of bowel obstruction is identified. The appendix is visualized in the right lower quadrant and appears within normal limits. Abdominal and pelvic vasculature is patent. No aggressive appearing osseous lesions are identified. Approximately 57 x 35 mm size peripherally enhancing centrally hypodense cystic lesion is noted involving left adnexa abuts the adjacent left pelvic bowel loops. IUCD appear low lying. Rest of the pelvic viscera are unremarkable. Diffuse enhancing wall thickening is noted involving small bowel loop ( jejunal and ileal loop) - suggestive of enteritis. Mild pelvic ascites with enhancing thickening is noted involving peritoneum lining - suggestive of peritonitis. IMPRESSION: 1. Minimal bilateral pleural effusion with passive subsegmental collapse of both lower lobes are seen. 2. A large peripherally enhancing centrally hypodense cystic lesion is noted involving left adnexa abuts the adjacent left pelvic bowel loops.- possibility of complex ovarian cystic lesion appears more likely than infective collection. 3. Diffuse enhancing wall thickening is noted involving small bowel loop ( jejunal and ileal loop) - suggestive of enteritis. 4. Mild pelvic ascites with enhancing thickening is noted involving peritoneum lining - suggestive of peritonitis. Electronically signed by Jr Lazo 09-09-2024 04:25 AM
[2024-09-09] MEDS: IRON SUCROSE 200 MG in SODIUM CHLORIDE 0.9% 100 ML IV ONE (12:12)
[2024-09-09 13:16] LABS: Chlam trach RNA(Genit,Ureth,Ur Not Detected (NotDetected); GC(Neis gon)RNA(Genit,Ureth,Ur Not Detected (NotDetected)
[2024-09-09 13:21] LABS: Trichomonas vag by NAA DETECTED (NotDetected)
[2024-09-09] MEDS: AMPICILLIN/SULBACTAM SOD 3,000 MG/100 ML BAG IV SCH (14:04)
--- NOTE | 2024-09-09 15:42 | Pharmacy Report ---
Pharmacy PK ABX Note - Date of Service September 09, 2024 - Assessment and Plan Assessment * 33 year old F receiving ampicillin, gentamicin, and doxycycline po for treatment of tuboovarian abscess, possible PID, ?infected IUD which has been removed. Significant discharge noted on pelvic exam. * Discussed w Dr. Zimmer * Recommended anaerobic coverage and ampicillin changed to ampicillin/sulbactam. * Dr. Zimmer also preferred to stop doxycycline at that time. * Discussed likely low threshold to consult ID. Gentamicin * Target dose not too clear - 7 mg/kg adjusted body weight (500mg) could be reasonable, but lower dose of 5 mg/kg actual body weight (450 mg) could also be reasonable. Since absolute dose difference is only 50 mg, will use the more aggressive dose of 500 mg since level can be more easily monitored *and* the level today was no where near the threshold that would indicate a dose adjustment is needed * Level of 2.2 obtained 6.5 hours after the start of the gentamicin infusion very clearly notes that a q24h regimen is reasonable when applied to the Jocelin nomogram Plan * Gentamicin 500 mg IV q24h * Repeat random level in 2-3 days * Monitor SCr to ensure extended interval dosing remains appropriate Pharmacy will continue to follow and will adjust dose/frequency as necessary. Thank you. Pharmacy has transitioned to AUC monitoring for vancomycin. AUC/FREDDY is the preferred PK/PD target and is associated with decreased risk of nephrotoxicity compared to traditional trough targets.
[2024-09-09] MEDS: SODIUM CHLORIDE 0.9% 1,000 ML IV SCH (18:58)
[2024-09-09] MEDS ORDERED: DOXYCYCLINE HYCLATE 100 MG CAP PO SCH (21:00)
[2024-09-09] MEDS: LORazepam 0.5 MG TAB PO PRN (23:03)
[2024-09-09] MEDS: ONDANSETRON INJ 2 MG/ML 2 ML VIAL IV PRN (23:25)
[2024-09-10] MEDS: MoRPHine SULFATE 4 MG/ML 1 ML CARP\\VIAL IV PRN (07:05)
[2024-09-10] MEDS: GENTAMICIN SULFATE 500 MG in DEXTROSE 5% 100 ML IV SCH (07:06)
[2024-09-10 07:27] LABS: Hematocrit (blood only) 23.8 % (37.0-47.0); Hemoglobin 7.4 g/dl (12.0-16.0); Mean Corpuscular Hemoglobin 21.6 pg (25.0-34.0); Mean Corpuscular Hgb Conc 31.1 g/dL (32.0-36.0); Mean Corpuscular Volume 69.4 fL (80.0-100.0); RDW Coefficient of Variation 17.9 % (11.5-14.5); RDW Standard Deviation 45.3 fL (36.4-46.3); Red Blood Count 3.43 M/uL (4.20-5.40); White Blood Count 24.31 K/ul (4.8-10.8)
[2024-09-10 07:42] LABS: Creatinine Clr Calc Pharmacy 171.7 ml/min
[2024-09-10 07:51] LABS: Mean Platelet Volume 8.7 fL (9.4-12.4); Platelet Count 720 K/uL (130-400)
[2024-09-10] MEDS ORDERED: SODIUM CHLORIDE 0.9% 100 ML IV PRN ×2 (08:17→14:41)
[2024-09-10] MEDS ORDERED: SODIUM CHLORIDE 0.9% 50 ML IV PRN ×2 (08:17→14:41)
[2024-09-10 08:28] LABS: Basophils # (auto) 0.04 K/uL (0.00-0.20); Basophils % (auto) 0.2 %; Eosinophils # (auto) 0.08 K/uL (0.00-0.50); Eosinophils % (auto) 0.3 %; Hypochromasia Present; Immature Granulocytes # (auto) 0.32 K/uL (0.01-0.20); Immature Granulocytes % (auto) 1.3 %; Lymphocytes # (auto) 1.34 K/uL (1.20-3.40); Lymphocytes % (auto) 5.5 %; Microcytosis Present; Monocytes # (auto) 1.43 K/uL (0.11-0.59); Monocytes % (auto) 5.9 %; Neutrophils % (auto) 86.8 %; Polychromasia 1+
--- NOTE | 2024-09-10 09:59 | Obstetrical Progress Note ---
Date of Service September 10, 2024 Assessment & Plan Admission and Anticipated Discharge Date Admission Date: September 09, 2024 Subjective abdomen moderately tender bowel normal passing flatus hgb down to 7.4 with tachycardia discussed possible surgery if patient does not improve afebrile on gentamycin ceftriatriaxone flagyl Results & Data Vital Signs (Past 12 Hours) Vital Signs Temp Pulse Pulse Resp BP BP Pulse Ox 09/10/24 07:41 36.6 C 104 H 20 133/85 98 09/10/24 05:09 37 C 99 H 09/10/24 03:21 37.7 C H 110 H 20 130/75 98 09/09/24 22:57 37 C 102 H 18 127/67 97 O2 Del Method 09/10/24 07:41 Room Air 09/10/24 05:09 09/10/24 03:21 Room Air 09/09/24 22:57 Room Air
--- NOTE | 2024-09-10 10:34 | Surgery Progress Note ---
Date of Service September 10, 2024 Assessment & Plan (1) Ruptured cyst of left ovary: (2) Tubo-ovarian abscess: (3) Abdominal pain: Plan 33-year-old woman presents with apparent tubo-ovarian abscess. This appears to be entirely gynecological in nature. No free air or evidence of perforated bowel. She is on antibiotics. We will continue the antibiotics and conservative management for now. I will continue to follow along. Primary management per gynecological team. 09/10/2024 -- continues to have significant pain in her abdomen. White count elevated to 24. I reviewed the ultrasound and CT scans. There does not appear to be any issue with the bowel, and the appendix is noted to be normal on CT scan. This continues to appear to be a completely gynecological issue related to tubo-ovarian abscess. Discussed with D[employer]PERATOR. If she is not significa ntly improved by tomorrow, will most likely need exploratory laparotomy. Will continue to follow along with gynecology. Admission and Anticipated Discharge Date Admission Date: September 09, 2024 Subjective Continues to have significant pain in the abdomen. No fevers or chills. No nausea or vomiting. Physical Exam Gastrointestinal (Abdomen): Inspection/Auscultation: abdomen normal to inspection; abdomen not distended Percussion/Palpation: + abdomen tender ( Diffusely) and abdomen soft; no guarding and abdomen not rigid Results & Data Vital Signs (Past 12 Hours) Vital Signs Temp Pulse Pulse Resp BP BP Pulse Ox 09/10/24 07:41 36.6 C 104 H 20 133/85 98 09/10/24 05:09 37 C 99 H 09/10/24 03:21 37.7 C H 110 H 20 130/75 98 09/09/24 22:57 37 C 102 H 18 127/67 97 O2 Del Method 09/10/24 07:41 Room Air 09/10/24 05:09 09/10/24 03:21 Room Air 09/09/24 22:57 Room Air
[2024-09-10] MEDS: cefTRIAXone SODIUM 2,000 MG/50 ML BAG IV SCH (10:45)
[2024-09-10] MEDS: metroNIDAZOLE 500 MG/100 ML BAG IV SCH (11:38)
[2024-09-10 12:31] LABS: Hematocrit (blood only) 23.9 % (37.0-47.0); Hemoglobin 7.3 g/dl (12.0-16.0)
--- NOTE | 2024-09-10 16:37 | Obstetrical Progress Note ---
Date of Service September 10, 2024 Assessment & Plan Admission and Anticipated Discharge Date Admission Date: September 09, 2024 Subjective symptomatic anemia tachycardia hgb falling will transfuse 1 liter Results & Data Vital Signs (Past 12 Hours) Vital Signs Temp Pulse Pulse Pulse Resp BP BP 09/10/24 16:19 37.3 C 106 H 18 138/91 09/10/24 16:05 37.4 C 102 H 18 150/85 H 09/10/24 15:44 37.6 C H 101 H 20 147/88 H 09/10/24 13:03 36.9 C 94 H 20 134/89 09/10/24 07:41 36.6 C 104 H 20 133/85 09/10/24 05:09 37 C 99 H Pulse Ox O2 Del Method 09/10/24 16:19 97 09/10/24 16:05 98 09/10/24 15:44 98 09/10/24 13:03 98 Room Air 09/10/24 07:41 98 Room Air 09/10/24 05:09
--- NOTE | 2024-09-10 17:11 | Obstetrical Progress Note ---
Date of Service September 10, 2024 Assessment & Plan Admission and Anticipated Discharge Date Admission Date: September 09, 2024 Subjective managed antibiotics initially stated on ampicillin gentamycin and po doxycycline switched to unasyn gentamycin stopped po doxycycline switched to rocephin flagyl gentamycin patient shows gradual improvement ambulating better Results & Data Vital Signs (Past 12 Hours) Vital Signs Temp Pulse Pulse Pulse Resp BP BP 09/10/24 16:49 36.9 C 99 H 18 148/86 H 09/10/24 16:19 37.3 C 106 H 18 138/91 09/10/24 16:05 37.4 C 102 H 18 150/85 H 09/10/24 15:44 37.6 C H 101 H 20 147/88 H 09/10/24 13:03 36.9 C 94 H 20 134/89 09/10/24 07:41 36.6 C 104 H 20 133/85 09/10/24 05:09 37 C 99 H Pulse Ox O2 Del Method 09/10/24 16:49 99 09/10/24 16:19 97 09/10/24 16:05 98 09/10/24 15:44 98 09/10/24 13:03 98 Room Air 09/10/24 07:41 98 Room Air 09/10/24 05:09
[2024-09-10 20:37] LABS: Hematocrit (blood only) 25.3 % (37.0-47.0); Hemoglobin 8.1 g/dl (12.0-16.0)
--- NOTE | 2024-09-11 00:31 | Obstetrical Progress Note ---
Date of Service September 11, 2024 Assessment & Plan Admission and Anticipated Discharge Date Admission Date: September 09, 2024 Subjective I spent 20 to 30 minutes discussing plan of management with the patient and her partner in the presence of the nurse. I discussed the fact that she had a left sided pelvic abscess. With associated peritonitis. We had adjusted the antibiotics several times. The plan was as long as she was improving to continue with the IV antibiotics. Surgery would be necessitated if we could not get ahead of her infection. So far she is progressing steadily well. We did n eed to transfuse her with 1 unit of blood due to falling hemoglobins in the sevens. After 1 unit she came up to 8.4. She is also improving in her ability to ambulate. Ideally the plan would be to control her infection in the hospital. Send her home on p.o. antibiotics. And then to return at a later date if she needs removal of her left tube and ovary. Results & Data Vital Signs (Past 12 Hours) Vital Signs Temp Pulse Pulse Pulse Resp BP BP 09/10/24 22:48 37 C 96 H 18 128/81 09/10/24 21:00 37.4 C 96 H 22 139/79 09/10/24 17:49 37 C 100 H 18 138/97 09/10/24 16:49 36.9 C 99 H 18 148/86 H 09/10/24 16:19 37.3 C 106 H 18 138/91 09/10/24 16:05 37.4 C 102 H 18 150/85 H 09/10/24 15:44 37.6 C H 101 H 20 147/88 H 09/10/24 13:03 36.9 C 94 H 20 134/89 Pulse Ox O2 Del Method 09/10/24 22:48 97 Room Air 09/10/24 21:00 97 Room Air 09/10/24 17:49 100 09/10/24 16:49 99 09/10/24 16:19 97 09/10/24 16:05 98 09/10/24 15:44 98 09/10/24 13:03 98 Room Air
[2024-09-11 06:07] LABS: Hematocrit (blood only) 24.6 % (37.0-47.0); Hemoglobin 7.9 g/dl (12.0-16.0); Mean Corpuscular Hemoglobin 22.5 pg (25.0-34.0); Mean Corpuscular Hgb Conc 32.1 g/dL (32.0-36.0); Mean Corpuscular Volume 70.1 fL (80.0-100.0); Mean Platelet Volume 8.7 fL (9.4-12.4); Platelet Count 618 K/uL (130-400); RDW Coefficient of Variation 19.1 % (11.5-14.5); Red Blood Count 3.51 M/uL (4.20-5.40); White Blood Count 29.57 K/ul (4.8-10.8)
[2024-09-11 06:15] LABS: Creatinine Clr Calc Pharmacy 165.5 ml/min
[2024-09-11 06:35] LABS: Basophils # (auto) 0.04 K/uL (0.00-0.20); Basophils % (auto) 0.1 %; Eosinophils # (auto) 0.09 K/uL (0.00-0.50); Eosinophils % (auto) 0.3 %; Immature Granulocytes # (auto) 0.98 K/uL (0.01-0.20); Immature Granulocytes % (auto) 3.3 %; Lymphocytes # (auto) 0.84 K/uL (1.20-3.40); Lymphocytes % (auto) 2.8 %; Monocytes # (auto) 1.48 K/uL (0.11-0.59); Neutrophils # (auto) 26.14 K/uL (1.40-6.50); Neutrophils % (auto) 88.5 %; Polychromasia 2+
[2024-09-11] MEDS ORDERED: SODIUM CHLORIDE 0.9% 100 ML IV PRN (08:35)
[2024-09-11] MEDS ORDERED: SODIUM CHLORIDE 0.9% 50 ML IV PRN (08:35)
--- NOTE | 2024-09-11 10:16 | Obstetrical Progress Note ---
Date of Service September 11, 2024 Assessment & Plan Admission and Anticipated Discharge Date Admission Date: September 09, 2024 Subjective abdomen tender bowel sounds present passing flatus hgb went from 8.1 to 7.9 will transfuse one more unit patient subjectively improving pain is gradually decreasing on flagyl gentamycin reocephin will advance to regular diet Results & Data Vital Signs (Past 12 Hours) Vital Signs Temp Pulse Pulse Resp BP BP Pulse Ox 09/11/24 09:53 37.2 C 96 H 18 115/85 98 09/11/24 09:38 37.1 C 97 H 18 135/85 97 09/11/24 09:18 36.9 C 100 H 18 134/74 97 09/11/24 07:30 37 C 105 H 20 125/85 98 09/11/24 05:54 37.4 C 09/11/24 04:02 38.2 C H 106 H 16 141/95 H 97 09/10/24 22:48 37 C 96 H 18 128/81 97 O2 Del Method 09/11/24 09:53 09/11/24 09:38 09/11/24 09:18 09/11/24 07:30 Room Air 09/11/24 05:54 09/11/24 04:02 Room Air 09/10/24 22:48 Room Air
[2024-09-11] MEDS: ACETAMINOPHEN 500 MG TAB PO PRN (10:23)
[2024-09-11] MEDS: SIMETHICONE 40 MG/0.6 ML 30ML PO PRN (23:14)
[2024-09-12] MEDS: SODIUM CHLORIDE 0.9% 1,000 ML IV SCH (02:03)
[2024-09-12 07:30] LABS: Hematocrit (blood only) 25.8 % (37.0-47.0); Hemoglobin 8.3 g/dl (12.0-16.0); Mean Corpuscular Hemoglobin 22.7 pg (25.0-34.0); Mean Corpuscular Hgb Conc 32.2 g/dL (32.0-36.0); Mean Corpuscular Volume 70.5 fL (80.0-100.0); Mean Platelet Volume 8.6 fL (9.4-12.4); Platelet Count 611 K/uL (130-400); RDW Coefficient of Variation 20.1 % (11.5-14.5); RDW Standard Deviation 50.7 fL (36.4-46.3); Red Blood Count 3.66 M/uL (4.20-5.40); White Blood Count 24.02 K/ul (4.8-10.8)
[2024-09-12 07:49] LABS: Anisocytosis Present; Basophils # (auto) 0.05 K/uL (0.00-0.20); Basophils % (auto) 0.2 %; Eosinophils # (auto) 0.15 K/uL (0.00-0.50); Eosinophils % (auto) 0.6 %; Hypochromasia Present; Immature Granulocytes % (auto) 1.2 %; Lymphocytes # (auto) 1.16 K/uL (1.20-3.40); Lymphocytes % (auto) 4.8 %; Monocytes % (auto) 6.7 %; Neutrophils # (auto) 20.76 K/uL (1.40-6.50); Neutrophils % (auto) 86.5 %; Polychromasia 1+
[2024-09-12 07:52] LABS: BUN Creatinine Ratio 15.7 (10-20); Calcium 8.4 mg/dl (8.6-10.3); Creatinine Clr Calc Pharmacy 178.4 ml/min; Potassium 3.1 mmol/L (3.5-5.1)
--- NOTE | 2024-09-12 09:22 | Obstetrical Progress Note ---
Date of Service September 12, 2024 Assessment & Plan Admission and Anticipated Discharge Date Admission Date: September 09, 2024 Subjective abdomen less tender bowel sounds present passing gas afebrile on flagyl gentamycin rocephin hgb 8.3 white count is decreasing patient is improving Results & Data Vital Signs (Past 12 Hours) Vital Signs Temp Pulse Pulse Resp BP Pulse Ox O2 Del Method 09/12/24 07:20 36.9 C 88 18 135/85 98 Room Air 09/12/24 05:15 37.3 C 92 H 18 146/85 H 99 Room Air 09/12/24 00:30 36.9 C 85 18 146/85 H 98 Room Air
[2024-09-13 08:15] LABS: Basophils # (auto) 0.02 K/uL (0.00-0.20); Basophils % (auto) 0.1 %; Eosinophils # (auto) 0.21 K/uL (0.00-0.50); Eosinophils % (auto) 1.2 %; Hematocrit (blood only) 24.7 % (37.0-47.0); Immature Granulocytes # (auto) 0.28 K/uL (0.01-0.20); Immature Granulocytes % (auto) 1.6 %; Lymphocytes # (auto) 1.76 K/uL (1.20-3.40); Lymphocytes % (auto) 9.8 %; Mean Corpuscular Hemoglobin 22.6 pg (25.0-34.0); Mean Corpuscular Hgb Conc 32.4 g/dL (32.0-36.0); Mean Corpuscular Volume 69.8 fL (80.0-100.0); Monocytes # (auto) 1.72 K/uL (0.11-0.59); Monocytes % (auto) 9.6 %; Neutrophils # (auto) 13.91 K/uL (1.40-6.50); Neutrophils % (auto) 77.7 %; RDW Coefficient of Variation 20.6 % (11.5-14.5); RDW Standard Deviation 50.8 fL (36.4-46.3); Red Blood Count 3.54 M/uL (4.20-5.40)
[2024-09-13 08:28] LABS: Creatinine Clr Calc Pharmacy 171.7 ml/min
[2024-09-13 08:35] LABS: Mean Platelet Volume 8.5 fL (9.4-12.4); Platelet Count 703 K/uL (130-400)
[2024-09-13 08:36] LABS: Hypochromasia Present; Microcytosis Present; Target Cells 2+
--- NOTE | 2024-09-13 09:24 | Gynecologic Progress Note ---
Date of Service September 13, 2024 Assessment & Plan Admission and Anticipated Discharge Date Admission Date: September 09, 2024 Subjective Patient is seen and examined. She much better compared to when she came in Pain is much better, she states she touch and push on her belly. Pain is under control with oral meds. Ambulating without dizziness Voiding without difficulty Tolerating regular diet with out N&V Flatus + BM + Bleeding is minimal No fever/ chills/ CP/ SOB/ N&V/ Leg pain/ VB Vital Signs Temp Pulse Pulse Resp BP Pulse Ox O2 Del Method 09/13/24 07:05 36.7 C 66 18 129/90 97 Room Air 09/13/24 03:50 37.5 C 74 16 122/85 99 Room Air 09/12/24 23:34 37.1 C 76 16 124/83 100 Room Air 09/12/24 20:35 36.8 C 72 18 116/67 97 Room Air 09/12/24 17:20 36.9 C 80 18 132/77 99 Room Air 09/12/24 14:00 36.8 C 87 18 132/68 98 Room Air Intake and Output 09/12/24 09/13/24 09/13/24 22:59 06:59 14:59 Intake Total 316.666 / 1255.833 100 / 100 Balance 316.666 / 605.833 100 / 100 Intake: IV 216.666 / 1055.833 100 / 100 Sodium Chloride 0.9% 1,000 ml @ 16.666 / 593.333 100 mls/hr IV .Q10H RAMONITA Rx#: [id number] metroNIDAZOLE 500 mg In 100 ml 200 / 300 100 / 100 @ 100 mls/hr IV Q8 RAMONITA Rx#: [id number] Oral 100 / 200 Other: # Unmeasured Voids 1 1 09/13/24 Range/Units 08:00 WBC 17.90 H (4.8-10.8) K/ul RBC 3.54 L (4.20-5.40) M/uL Hgb 8.0 L (12.0-16.0) g/dl Hct 24.7 L (37.0-47.0) % MCV 69.8 L (80.0-100.0) fL MCH 22.6 L (25.0-34.0) pg MCHC 32.4 (32.0-36.0) g/dL RDW Std Deviation 50.8 H (36.4-46.3) fL RDW Coeff of Tito 20.6 H (11.5-14.5) % Plt Count 703 H (130-400) K/uL MPV 8.5 L (9.4-12.4) fL Immature Gran % (Auto) 1.6 % Neut % (Auto) 77.7 % Lymph % (Auto) 9.8 % [place] % (Auto) 9.6 % Eos % (Auto) 1.2 % Baso % (Auto) 0.1 % Neut # (Auto) 13.91 H (1.40-6.50) K/uL Lymph # (Auto) 1.76 (1.20-3.40) K/uL [place] # (Auto) 1.72 H (0.11-0.59) K/uL Eos # (Auto) 0.21 (0.00-0.50) K/uL Baso # (Auto) 0.02 (0.00-0.20) K/uL Immature Gran # (Auto) 0.28 H (0.01-0.20) K/uL Hypochromasia Present Microcytosis Present Target Cells 2+ Creatinine 0.53 L (0.6-1.2) mg/dl Est Cr Clr Drug Dosing 171.7 ml/min eGFR 126.72 PE: General: Alert, orientedx3, NAD CVS: S1S2 RRR Lungs; CTAB Abd: softer and less tender, ND, BS+, Ext; NT, no edema AP: 33 yo admitted for PID, pelvic infection, peritonitis on 09/09 am, hd# 5 On triple IV AB VSS Afebrile doing well WBCC coming down Continue to monitor, IV AB Check CBC in am Encourage ambulation, PO intake All questions were answered Results & Data Vital Signs (Past 12 Hours) Vital Signs Temp Pulse Pulse Resp BP Pulse Ox O2 Del Method 09/13/24 07:05 36.7 C 66 18 129/90 97 Room Air 09/13/24 03:50 37.5 C 74 16 122/85 99 Room Air 09/12/24 23:34 37.1 C 76 16 124/83 100 Room Air
--- NOTE | 2024-09-13 16:52 | Pharmacy Report ---
Pharmacy PK ABX Note - Date of Service September 13, 2024 - Assessment and Plan Assessment * 33 year old F receiving ampicillin, gentamicin, and doxycycline po for treatment of tuboovarian abscess, possible PID, ?infected IUD which has been removed. Significant discharge noted on pelvic exam. * Discussed w Dr. Zimmer * Recommended anaerobic coverage and ampicillin changed to ampicillin/sulbactam. * Dr. Zimmer also preferred to stop doxycycline at that time. * Discussed likely low threshold to consult ID. Gentamicin * Target dose not too clear - 7 mg/kg adjusted body weight (500mg) could be reasonable, but lower dose of 5 mg/kg actual body weight (450 mg) could also be reasonable. Since absolute dose difference is only 50 mg, will use the more aggressive dose of 500 mg since level can be more easily monitored *and* the level today was no where near the threshold that would indicate a dose adjustment is needed * Level of 2.2 obtained 6.5 hours after the start of the gentamicin infusion very clearly notes that a q24h regimen is reasonable when applied to the [place] nomogram 09/13 * Gentamicin level ~6.5 hours after start of the infusion was 3.89. Scr remains stable. Plan * Continue Gentamicin 500 mg IV q24h * Repeat random level in 2-3 days or as clinically indicated * Monitor SCr to ensure extended interval dosing remains appropriate Pharmacy will continue to follow and will adjust dose/frequency as necessary. Thank you. Pharmacy has transitioned to AUC monitoring for vancomycin. AUC/FREDDY is the preferred PK/PD target and is associated with decreased risk of nephrotoxicity compared to traditional trough targets.
[2024-09-13] MEDS: FLUCONAZOLE 50 MG TAB PO ONE (22:24)
[2024-09-14 05:59] LABS: Basophils # (auto) 0.06 K/uL (0.00-0.20); Basophils % (auto) 0.3 %; Eosinophils # (auto) 0.25 K/uL (0.00-0.50); Eosinophils % (auto) 1.2 %; Hematocrit (blood only) 29.3 % (37.0-47.0); Hemoglobin 9.4 g/dl (12.0-16.0); Immature Granulocytes % (auto) 1.9 %; Lymphocytes % (auto) 10.1 %; Mean Corpuscular Hemoglobin 22.4 pg (25.0-34.0); Mean Corpuscular Hgb Conc 32.1 g/dL (32.0-36.0); Mean Corpuscular Volume 69.8 fL (80.0-100.0); Monocytes # (auto) 1.94 K/uL (0.11-0.59); Monocytes % (auto) 9.3 %; Neutrophils # (auto) 16.09 K/uL (1.40-6.50); Neutrophils % (auto) 77.2 %; RDW Coefficient of Variation 21.2 % (11.5-14.5); RDW Standard Deviation 51.7 fL (36.4-46.3); White Blood Count 20.84 K/ul (4.8-10.8)
[2024-09-14 06:10] LABS: Creatinine Clr Calc Pharmacy 165.5 ml/min
[2024-09-14 06:20] LABS: Anisocytosis Present; Hypochromasia Present; Mean Platelet Volume 8.5 fL (9.4-12.4); Microcytosis Present; Platelet Count 727 K/uL (130-400); Polychromasia 1+; Target Cells 1+
--- NOTE | 2024-09-14 09:07 | Obstetrical Progress Note ---
Date of Service September 14, 2024 Assessment & Plan Admission and Anticipated Discharge Date Admission Date: September 09, 2024 Subjective abdomen soft and non tender bowel sounds present passing flatus hgb 9.4 on flagyl gentamycin and rocephin subjectively patient is improved afebrile patient is has diarrhea on probiotics Results & Data Vital Signs (Past 12 Hours) Vital Signs Temp Pulse Resp BP Pulse Ox O2 Del Method 09/14/24 04:00 36.8 C 88 16 134/90 99 Room Air 09/13/24 23:05 Room Air 09/13/24 23:05 36.6 C 74 18 122/86 100 Room Air
[2024-09-14] MEDS: SACCHAROMYCES BOULARDII 250 MG CAP PO SCH (11:14)
[2024-09-14 11:32] VITALS: O2SAT 98
[2024-09-14] MEDS: KETOROLAC TROMETHAMINE 15 MG/ML VIAL IV PRN (15:43)
[2024-09-14] MEDS: oxyCODONE/ACETAMINOPHEN 5mg/325mg TAB PO PRN (18:24)
[2024-09-15 07:37] VITALS: RESP 16
[2024-09-15 07:49] LABS: Creatinine Clr Calc Pharmacy 202.2 ml/min
[2024-09-15 11:39] VITALS: BP 138/79; PULSE 83; TEMP 98.1
[2024-09-15 12:39] LABS: Basophils # (auto) 0.03 K/uL (0.00-0.20); Basophils % (auto) 0.2 %; Eosinophils # (auto) 0.27 K/uL (0.00-0.50); Eosinophils % (auto) 1.4 %; Hematocrit (blood only) 27.7 % (37.0-47.0); Immature Granulocytes # (auto) 0.33 K/uL (0.01-0.20); Immature Granulocytes % (auto) 1.7 %; Lymphocytes # (auto) 2.16 K/uL (1.20-3.40); Lymphocytes % (auto) 11.4 %; Mean Corpuscular Hemoglobin 22.6 pg (25.0-34.0); Mean Corpuscular Hgb Conc 32.5 g/dL (32.0-36.0); Mean Corpuscular Volume 69.6 fL (80.0-100.0); Monocytes # (auto) 1.68 K/uL (0.11-0.59); Monocytes % (auto) 8.9 %; Neutrophils # (auto) 14.44 K/uL (1.40-6.50); Neutrophils % (auto) 76.4 %; RDW Coefficient of Variation 21.3 % (11.5-14.5); Red Blood Count 3.98 M/uL (4.20-5.40); White Blood Count 18.91 K/ul (4.8-10.8)
[2024-09-15 12:49] LABS: Mean Platelet Volume 8.6 fL (9.4-12.4); Platelet Count 641 K/uL (130-400)
[2024-09-15 13:10] LABS: Anisocytosis Present; Microcytosis Present; Polychromasia 1+; Target Cells 1+
--- NOTE | 2024-09-15 13:25 | Gynecologic Progress Note ---
Date of Service September 15, 2024 Assessment & Plan Admission and Anticipated Discharge Date Admission Date: September 09, 2024 Subjective feels better. up OOB with less pain. passing gas Review of Systems Review of Systems: All systems reviewed & are unremarkable except as noted in HPI & below Physical Exam Constitutional: WD/WN, vitals as above Eyes: PERRL, conjunctivae normal, anicteric sclerae Gastrointestinal (Abdomen): Inspection/Auscultation: abdomen normal to inspection abdomen soft, tender in LLQ but no rebound or guarding. Musculoskeletal: Extremities: extremities normal to inspection Skin: no rashes, warm and dry Neurologic: patellar DTR's 2+ bilat, sensation intact Psychiatric: A+Ox3, euthymic affect Results & Data Vital Signs (Past 12 Hours) Vital Signs Temp Pulse Resp BP Pulse Ox O2 Del Method 09/15/24 11:35 36.7 C 83 16 138/79 98 Room Air 09/15/24 07:05 37.2 C 70 16 117/75 98 Room Air Laboratory Results 09/09/24 09/09/24 09/09/24 01:01 03:53 05:01 WBC 17.27 H RBC 4.46 Hgb 9.4 L 9.2 L Hct 31.3 L 30.8 L MCV 70.2 L MCH 21.1 L MCHC 30.0 L RDW Std Deviation 44.8 RDW Coeff of Tito 17.8 H Plt Count 873 H MPV 8.6 L Immature Gran % (Auto) 0.9 Neut % (Auto) 66.5 Lymph % (Auto) 23.5 Tripp % (Auto) 7.9 Eos % (Auto) 0.9 Baso % (Auto) 0.3 Neut # (Auto) 11.49 H Lymph # (Auto) 4.05 H Tripp # (Auto) 1.37 H Eos # (Auto) 0.16 Baso # (Auto) 0.05 Immature Gran # (Auto) 0.15 Polychromasia Hypochromasia Anisocytosis Microcytosis Target Cells Sodium 136 Potassium 3.4 L Chloride 104 Carbon Dioxide 20 L Anion Gap 12 H BUN 12 Creatinine 0.72 Est Cr Clr Drug Dosing 126.4 eGFR 114.57 BUN/Creatinine Ratio 16.7 Glucose 123 H Calcium 9.6 Total Bilirubin 0.3 AST 13 ALT 12 Alkaline Phosphatase 67 Total Protein 8.8 H Albumin 4.2 Globulin 4.6 H Albumin/Globulin Ratio 0.9 Lipase 26 HCG, Qual Negative Urine Color Yellow Urine Appearance Cloudy A Urine pH 6.0 Ur Specific [place] > 1.045 H Urine Protein 1+ H Urine Glucose (UA) Negative Urine Ketones 1+ H Urine Blood Trace H Urine Nitrite Negative Urine Bilirubin Negative Urine Urobilinogen Negative Ur Leukocyte Esterase Negative Urine WBC (Auto) 21-50 H Urine RBC (Auto) 11-20 H U Hyaline Cast (Auto) 0-2 U Epithel Cells (Auto) 0-2 Urine Bacteria (Auto) None Seen Stl C. diff Tox B Gene Random Gentamicin C.trachomatis RNA N.gonorrhoeae RNA T.vaginalis (Amp Det) Blood Type O Positive Blood Type Recheck Antibody Screen NEGATIVE Crossmatch See Detail 09/09/24 09/09/24 09/09/24 05:30 08:53 14:04 WBC 18.08 H RBC 4.23 Hgb 8.9 L Hct 29.6 L MCV 70.0 L MCH 21.0 L MCHC 30.1 L RDW Std Deviation 45.5 RDW Coeff of Tito 18.1 H Plt Count 752 H MPV 8.7 L Immature Gran % (Auto) 0.4 Neut % (Auto) 91.7 Lymph % (Auto) 4.9 Tripp % (Auto) 2.9 Eos % (Auto) 0.0 Baso % (Auto) 0.1 Neut # (Auto) 16.58 H Lymph # (Auto) 0.89 L Tripp # (Auto) 0.52 Eos # (Auto) 0.00 Baso # (Auto) 0.02 Immature Gran # (Auto) 0.07 Polychromasia 1+ Hypochromasia Present Anisocytosis Microcytosis Present Target Cells Sodium Potassium Chloride Carbon Dioxide Anion Gap BUN Creatinine Est Cr Clr Drug Dosing eGFR BUN/Creatinine Ratio Glucose Calcium Total Bilirubin AST ALT Alkaline Phosphatase Total Protein Albumin Globulin Albumin/Globulin Ratio Lipase HCG, Qual Urine Color Urine Appearance Urine pH Ur Specific [place] Urine Protein Urine Glucose (UA) Urine Ketones Urine Blood Urine Nitrite Urine Bilirubin Urine Urobilinogen Ur Leukocyte Esterase Urine WBC (Auto) Urine RBC (Auto) U Hyaline Cast (Auto) U Epithel Cells (Auto) Urine Bacteria (Auto) Stl C. diff Tox B Gene Random Gentamicin 2.20 C.trachomatis RNA Not Detected N.gonorrhoeae RNA Not Detected T.vaginalis (Amp Det) DETECTED A Blood Type Blood Type Recheck Antibody Screen Crossmatch 09/10/24 09/10/24 09/10/24 06:58 11:54 19:40 WBC 24.31 H RBC 3.43 L Hgb 7.4 L 7.3 L 8.1 L Hct 23.8 L 23.9 L 25.3 L MCV 69.4 L MCH 21.6 L MCHC 31.1 L RDW Std Deviation 45.3 RDW Coeff of Tito 17.9 H Plt Count 720 H MPV 8.7 L Immature Gran % (Auto) 1.3 Neut % (Auto) 86.8 Lymph % (Auto) 5.5 Tripp % (Auto) 5.9 Eos % (Auto) 0.3 Baso % (Auto) 0.2 Neut # (Auto) 21.10 H Lymph # (Auto) 1.34 Tripp # (Auto) 1.43 H Eos # (Auto) 0.08 Baso # (Auto) 0.04 Immature Gran # (Auto) 0.32 H Polychromasia 1+ Hypochromasia Present Anisocytosis Microcytosis Present Target Cells Sodium Potassium Chloride Carbon Dioxide Anion Gap BUN Creatinine 0.53 L Est Cr Clr Drug Dosing 171.7 eGFR 126.72 BUN/Creatinine Ratio Glucose Calcium Total Bilirubin AST ALT Alkaline Phosphatase Total Protein Albumin Globulin Albumin/Globulin Ratio Lipase HCG, Qual Urine Color Urine Appearance Urine pH Ur Specific [place] Urine Protein Urine Glucose (UA) Urine Ketones Urine Blood Urine Nitrite Urine Bilirubin Urine Urobilinogen Ur Leukocyte Esterase Urine WBC (Auto) Urine RBC (Auto) U Hyaline Cast (Auto) U Epithel Cells (Auto) Urine Bacteria (Auto) Stl C. diff Tox B Gene Random Gentamicin C.trachomatis RNA N.gonorrhoeae RNA T.vaginalis (Amp Det) Blood Type Blood Type Recheck O Positive Antibody Screen Crossmatch 09/11/24 09/12/24 09/13/24 05:39 06:44 08:00 WBC 29.57 H 24.02 H 17.90 H RBC 3.51 L 3.66 L 3.54 L Hgb 7.9 L 8.3 L 8.0 L Hct 24.6 L 25.8 L 24.7 L MCV 70.1 L 70.5 L 69.8 L MCH 22.5 L 22.7 L 22.6 L MCHC 32.1 32.2 32.4 RDW Std Deviation 48.0 H 50.7 H 50.8 H RDW Coeff of Tito 19.1 H 20.1 H 20.6 H Plt Count 618 H 611 H 703 H MPV 8.7 L 8.6 L 8.5 L Immature Gran % (Auto) 3.3 1.2 1.6 Neut % (Auto) 88.5 86.5 77.7 Lymph % (Auto) 2.8 4.8 9.8 Tripp % (Auto) 5.0 6.7 9.6 Eos % (Auto) 0.3 0.6 1.2 Baso % (Auto) 0.1 0.2 0.1 Neut # (Auto) 26.14 H 20.76 H 13.91 H Lymph # (Auto) 0.84 L 1.16 L 1.76 Tripp # (Auto) 1.48 H 1.60 H 1.72 H Eos # (Auto) 0.09 0.15 0.21 Baso # (Auto) 0.04 0.05 0.02 Immature Gran # (Auto) 0.98 H 0.30 H 0.28 H Polychromasia 2+ 1+ Hypochromasia Present Present Anisocytosis Present Microcytosis Present Target Cells 2+ Sodium 136 Potassium 3.1 L Chloride 107 Carbon Dioxide 19 L Anion Gap 10 BUN 8 Creatinine 0.55 L 0.51 L 0.53 L Est Cr Clr Drug Dosing 165.5 178.4 171.7 eGFR 125.60 127.90 126.72 BUN/Creatinine Ratio 15.7 Glucose 88 Calcium 8.4 L Total Bilirubin AST ALT Alkaline Phosphatase Total Protein Albumin Globulin Albumin/Globulin Ratio Lipase HCG, Qual Urine Color Urine Appearance Urine pH Ur Specific [place] Urine Protein Urine Glucose (UA) Urine Ketones Urine Blood Urine Nitrite Urine Bilirubin Urine Urobilinogen Ur Leukocyte Esterase Urine WBC (Auto) Urine RBC (Auto) U Hyaline Cast (Auto) U Epithel Cells (Auto) Urine Bacteria (Auto) Stl C. diff Tox B Gene Random Gentamicin C.trachomatis RNA N.gonorrhoeae RNA T.vaginalis (Amp Det) Blood Type Blood Type Recheck Antibody Screen Crossmatch 09/13/24 09/13/24 09/14/24 14:56 23:10 05:27 WBC 20.84 H RBC 4.20 Hgb 9.4 L Hct 29.3 L MCV 69.8 L MCH 22.4 L MCHC 32.1 RDW Std Deviation 51.7 H RDW Coeff of Tito 21.2 H Plt Count 727 H MPV 8.5 L Immature Gran % (Auto) 1.9 Neut % (Auto) 77.2 Lymph % (Auto) 10.1 Tripp % (Auto) 9.3 Eos % (Auto) 1.2 Baso % (Auto) 0.3 Neut # (Auto) 16.09 H Lymph # (Auto) 2.10 Tripp # (Auto) 1.94 H Eos # (Auto) 0.25 Baso # (Auto) 0.06 Immature Gran # (Auto) 0.40 H Polychromasia 1+ Hypochromasia Present Anisocytosis Present Microcytosis Present Target Cells 1+ Sodium Potassium Chloride Carbon Dioxide Anion Gap BUN Creatinine 0.55 L Est Cr Clr Drug Dosing 165.5 eGFR 125.60 BUN/Creatinine Ratio Glucose Calcium Total Bilirubin AST ALT Alkaline Phosphatase Total Protein Albumin Globulin Albumin/Globulin Ratio Lipase HCG, Qual Urine Color Urine Appearance Urine pH Ur Specific [place] Urine Protein Urine Glucose (UA) Urine Ketones Urine Blood Urine Nitrite Urine Bilirubin Urine Urobilinogen Ur Leukocyte Esterase Urine WBC (Auto) Urine RBC (Auto) U Hyaline Cast (Auto) U Epithel Cells (Auto) Urine Bacteria (Auto) Stl C. diff Tox B Gene Negative Cdiff Gene Random Gentamicin 3.89 C.trachomatis RNA N.gonorrhoeae RNA T.vaginalis (Amp Det) Blood Type Blood Type Recheck Antibody Screen Crossmatch 09/15/24 09/15/24 06:47 12:07 WBC 18.91 H RBC 3.98 L Hgb 9.0 L Hct 27.7 L MCV 69.6 L MCH 22.6 L MCHC 32.5 RDW Std Deviation 52.0 H RDW Coeff of Tito 21.3 H Plt Count 641 H MPV 8.6 L Immature Gran % (Auto) 1.7 Neut % (Auto) 76.4 Lymph % (Auto) 11.4 Tripp % (Auto) 8.9 Eos % (Auto) 1.4 Baso % (Auto) 0.2 Neut # (Auto) 14.44 H Lymph # (Auto) 2.16 Tripp # (Auto) 1.68 H Eos # (Auto) 0.27 Baso # (Auto) 0.03 Immature Gran # (Auto) 0.33 H Polychromasia 1+ Hypochromasia Anisocytosis Present Microcytosis Present Target Cells 1+ Sodium Potassium Chloride Carbon Dioxide Anion Gap BUN Creatinine 0.45 L Est Cr Clr Drug Dosing 202.2 eGFR 131.82 BUN/Creatinine Ratio Glucose Calcium Total Bilirubin AST ALT Alkaline Phosphatase Total Protein Albumin Globulin Albumin/Globulin Ratio Lipase HCG, Qual Urine Color Urine Appearance Urine pH Ur Specific [place] Urine Protein Urine Glucose (UA) Urine Ketones Urine Blood Urine Nitrite Urine Bilirubin Urine Urobilinogen Ur Leukocyte Esterase Urine WBC (Auto) Urine RBC (Auto) U Hyaline Cast (Auto) U Epithel Cells (Auto) Urine Bacteria (Auto) Stl C. diff Tox B Gene Random Gentamicin C.trachomatis RNA N.gonorrhoeae RNA T.vaginalis (Amp Det) Blood Type Blood Type Recheck Antibody Screen Crossmatch
--- NOTE | 2024-09-28 10:03 | Discharge Summary ---
Date of Service September 28, 2024 Admission HPI Per Admitting Provider here for repeat Discharge Data Consultations 09/09/24 05:07 ED Decision to Admit Stat 09/09/24 05:45 Consult General Surgery Routine Procedures Performed repeat
--- NOTE | 2024-10-16 09:20 | Discharge Summary ---
Date of Service October 16, 2024 Discharge Data Consultations 09/09/24 05:07 ED Decision to Admit Stat 09/09/24 05:45 Consult General Surgery Routine Hospital Course (1) Tubo-ovarian abscess: Plan follow up in office
== END 2024-09-15 16:15 | disposition home or self-care (01) | DRG 757 ==
LOC: ED 00:43 → 4E1 05:00